=== PATIENT | female | born 1935 | race Caucasian/White ===

== ENCOUNTER 2017-09-06 11:56 | Inpatient (IN) | payer OTHER, MEDICARE ==
[~2017-09-06] VITALS: Ht 165.1 cm; Wt 65.6 kg
[~2017-09-06 11:56] MED LIST: ALTACE10 MG PO; ASCORBIC ACID100 MG PO; ASPIRIN E.C.81 M1 PO; Ascorbic Acid,Ester- PO; Aspirin E.C. PO; Ativan PO; CATAPRES0.2 MG PO; CENTRUM SILVER1 EAC3 PO; COLACE100 MG PO; COQ-10100 MG PO; Citracal W/Vitamin D PO; ELAVIL100 MG PO; FERGON324 MG PO; LIPITOR40 MG PO; Lopressor PO; NORVASC5 MG PO; TOPROL XL25 MG PO; TRAMADOL HCL50 MG PO; Tylenol Extra Streng PO; Vicodin,Norco 5/325 PO; ZYRTEC10 M3 PO; Zofran PO; ZyrTEC PO
[2017-09-06 12:55] LABS: BASOPHIL (%) 0.3 % (0-1); EOSINOPHIL (%) 0 % (0-5); HEMATOCRIT 35.2 % (36.0-46.0); HEMOGLOBIN 11.7 G/DL (11.9-15.5); IMMATURE GRANULOCYTE (%) 0.4 % (0.0-0.7); LYMPHOCYTE (%) 9.5 % (15-42); LYMPHOCYTE COUNT 1.1 K/uL (1.0-2.8); MCHC 33.2 G/DL (30.0-36.0); MCV 81.3 FL (83-99); MONOCYTE COUNT 0.8 K/uL (0-0.8); NEUTROPHIL (%) 82.8 % (45-76); NEUTROPHIL COUNT 9.5 K/uL (1.8-6.4); PLATELET COUNT 419 K/uL (156-360); RBC DIS.WIDTH-SD 44.2 % (39-53); RED BLOOD COUNT 4.33 M/uL (3.80-5.20); WHITE BLOOD COUNT 11.5 K/uL (4.1-10.2)
[2017-09-06 13:04] LABS: INTER. NORMALIZED RATIO 1.3
[2017-09-06 13:07] LABS: CHLORIDE 98 mEq/L (99-109); POTASSIUM 3.7 mEq/L (3.7-5.4); SODIUM 137 mEq/L (136-147)
[2017-09-06 13:09] LABS: GLUCOSE 140 mg/dL (70-99)
[2017-09-06 13:13] LABS: CREATININE 1.5 mg/dL (0.6-1.3); GFR ESTIMATE (CALCULATED) 35 mL/min/
[2017-09-06 13:14] LABS: UREA NITROGEN (BUN) 28 mg/dL (9-23)
[2017-09-06 13:15] LABS: TOTAL CK 2792 IU/L (1-294)
[2017-09-06 13:16] LABS: CREATINE KINASE 2792 IU/L (1-294)
[2017-09-06 13:17] LABS: PTT 26.5 SEC (25-37)
[2017-09-06 13:18] LABS: TROP-I INTERPRETATION NEGATIVE; TROPONIN-I 0.09 ng/mL (0.0-0.30)
[2017-09-06 13:38] LABS: CK-MB 11.5 ng/mL (0.0-4.9); CKMB RELATIVE INDEX 0.4 (0.0-3.9)
[2017-09-06] MEDS ORDERED: ATIVAN0.5 MG PO (15:18)
[2017-09-06] MEDS ORDERED: CITRACAL PLUS1 EAC1 PO (15:19)
[2017-09-06] MEDS ORDERED: IRON 100-VITAM1 EACH PO (15:24)
[2017-09-06] MEDS ORDERED: PRESERVISION T1 EACH PO (15:25)
[2017-09-06] MEDS ORDERED: HYDROCHLOROTHIA25 MG PO (15:25)
[2017-09-06] MEDS ORDERED: VITAMIN D31000 UNI2 PO (15:25)
[2017-09-06] MEDS ORDERED: ZANTAC150 MG PO (15:26)
[2017-09-06] MEDS ORDERED: LO-DOSE ASPIRIN81 M2 PO (15:26)
[2017-09-06] MEDS ORDERED: PERCOCET 2.51 TABLET PO (15:27)
[2017-09-06 19:27] LABS: TROP-I INTERPRETATION NEGATIVE; TROPONIN-I 0.11 ng/mL (0.0-0.30)
[2017-09-06 20:30] VITALS: BP 114/60
[2017-09-06 23:42] VITALS: BP 134/65
[2017-09-07 01:27] LABS: TROP-I INTERPRETATION NEGATIVE
[2017-09-07 04:05] VITALS: BP 119/67
[2017-09-07 06:43] LABS: ALBUMIN 2.4 G/DL (3.2-4.8); ALKALINE PHOSPHATASE 65 IU/L (3-129); ALT (GPT) 35 IU/L (3-49); AST (GOT) 48 IU/L (2-34); CHLORIDE 102 MEQ/L (99-109); CREATININE 1.2 MG/DL (0.6-1.3); GFR ESTIMATE (CALCULATED) 46 mL/min/; POTASSIUM 3.5 MEQ/L (3.7-5.4); SODIUM 137 MEQ/L (136-147); TOTAL BILIRUBIN 0.9 MG/DL (0.0-1.0); TOTAL CK 1124 IU/L (1-294); TOTAL PROTEIN 4.8 G/DL (6.4-8.3); UREA NITROGEN (BUN) 32 mg/dL (9-23)
[2017-09-07 06:54] LABS: CREATINE KINASE 1124 IU/L (1-294); GLUCOSE 97 mg/dL (70-99)
[2017-09-07 07:03] VITALS: BP 129/62
[2017-09-07 07:54] LABS: CKMB RELATIVE INDEX 0.6 (0.0-3.9)
[2017-09-07 07:59] LABS: CK-MB 7.2 ng/mL (0.0-4.9)
[2017-09-07 11:07] VITALS: BP 133/60
[2017-09-07 15:10] VITALS: BP 111/55
[2017-09-07 20:09] VITALS: BP 129/60
[2017-09-08 00:05] LABS: CK-MB 4.8 ng/mL (0.0-4.9)
[2017-09-08 00:07] VITALS: BP 130/62
[2017-09-08 01:02] LABS: CKMB RELATIVE INDEX 0.6 (0.0-3.9); CREATINE KINASE 741 IU/L (1-294); TOTAL CK 741 IU/L (1-294)
[2017-09-08 04:21] LABS: APPEARANCE CLEAR ((CLEAR)); BILIRUBIN NEGATIVE; BLOOD SMALL; COLOR YELLOW ((YELLOW)); GLUCOSE (STRIP) NEGATIVE; KETONES NEGATIVE; LEUKOCYTES NEGATIVE; NITRITE NEGATIVE; PROTEIN (STRIP) NEGATIVE; UROBILINOGEN 0.2 MG/DL (0.2-1.0)
[2017-09-08 04:23] LABS: BACTERIA RARE /HPF; EPITHELIAL CELLS RARE /HPF; MUCUS NONE SEEN /LPF; RED BLOOD CELLS 0-5 /HPF (0-5); UCUL ADDED? NO; WHITE BLOOD CELLS 0-5 /HPF (0-5)
[2017-09-08 05:31] VITALS: BP 138/65
[2017-09-08 06:52] LABS: CHLORIDE 105 MEQ/L (99-109); POTASSIUM 3.3 MEQ/L (3.7-5.4); SODIUM 136 MEQ/L (136-147)
[2017-09-08 06:57] LABS: CREATININE 0.8 MG/DL (0.6-1.3); GFR ESTIMATE (CALCULATED) > 59 mL/min/; GLUCOSE 105 mg/dL (70-99); UREA NITROGEN (BUN) 22 mg/dL (9-23)
[2017-09-08 07:22] LABS: BASOPHIL (%) 0.8 % (0-1); BASOPHIL COUNT 0.1 K/uL (0-0.1); EOSINOPHIL (%) 1.4 % (0-5); EOSINOPHIL COUNT 0.1 K/uL (0-0.3); HEMATOCRIT 25.6 % (36.0-46.0); IMMATURE GRANULOCYTE (%) 0.6 % (0.0-0.7); LYMPHOCYTE (%) 20.6 % (15-42); LYMPHOCYTE COUNT 1.6 K/uL (1.0-2.8); MCH 26.9 PG (29.0-34.0); MCHC 32.4 G/DL (30.0-36.0); MCV 83.1 FL (83-99); MONOCYTE (%) 9.4 % (3-12); MONOCYTE COUNT 0.7 K/uL (0-0.8); NEUTROPHIL (%) 67.2 % (45-76); NEUTROPHIL COUNT 5.2 K/uL (1.8-6.4); PLATELET COUNT 304 K/uL (156-360); RBC DIS.WIDTH-CV 15.5 % (11.8-14.6); RBC DIS.WIDTH-SD 46.5 % (39-53); WHITE BLOOD COUNT 7.8 K/uL (4.1-10.2)
[2017-09-08 07:24] LABS: RED BLOOD COUNT 3.08 M/uL (3.80-5.20)
[2017-09-08 07:25] LABS: HEMOGLOBIN 8.3 G/DL (11.9-15.5)
[2017-09-08 08:30] VITALS: BP 130/56
[2017-09-08 09:38] LABS: HEMOGLOBIN 8.6 G/DL (11.9-15.5); MCV 84.4 FL (83-99)
[2017-09-08 12:10] VITALS: BP 134/63
[2017-09-08 16:18] VITALS: BP 120/62
[2017-09-08 19:28] VITALS: BP 113/57
[2017-09-09 00:01] VITALS: BP 150/67
[2017-09-09 08:51] VITALS: BP 169/69
[2017-09-09 10:39] LABS: HEMATOCRIT 27.1 % (36.0-46.0); HEMOGLOBIN 8.5 G/DL (11.9-15.5); MCH 26.5 PG (29.0-34.0); MCHC 31.4 G/DL (30.0-36.0); MCV 84.4 FL (83-99); PLATELET COUNT 371 K/uL (156-360); RBC DIS.WIDTH-CV 15.9 % (11.8-14.6); RBC DIS.WIDTH-SD 48.2 % (39-53); RED BLOOD COUNT 3.21 M/uL (3.80-5.20); WHITE BLOOD COUNT 6.5 K/uL (4.1-10.2)
== END 2017-09-09 14:30 | DRG 558 ==
LOC: EME 11:56 → 4SOUTH 15:12 → EME 15:12 → 4SOUTH 15:12 → CANRESERV 15:55 → ENRESERV 15:55 → EDOF 16:44 → 2EAST 16:44 → ENRESERV 18:04 → 2EAST 19:14
PROVIDERS: Emergency Medicine; Hospitalist; Internal Medicine; Physician Assistant
DX: M62.82 Rhabdomyolysis (principal); N17.9 Acute kidney failure, unspecified; D62 Acute posthemorrhagic anemia; S50.00XA Contusion of unspecified elbow, initial encounter; S30.0XXA Contusion of lower back and pelvis, initial encounter; S40.012A Contusion of left shoulder, initial encounter; S40.011A Contusion of right shoulder, initial encounter; S70.02XA Contusion of left hip, initial encounter; S70.01XA Contusion of right hip, initial encounter; S80.02XA Contusion of left knee, initial encounter; S80.01XA Contusion of right knee, initial encounter; S40.022A Contusion of left upper arm, initial encounter; S40.021A Contusion of right upper arm, initial encounter; W01.0XXA Fall on same level from slipping, tripping and stumbling without subsequent striking against object, initial encounter; Y92.009 Unspecified place in unspecified non-institutional (private) residence as the place of occurrence of the external cause; R29.6 Repeated falls; Z66 Do not resuscitate; R91.1 Solitary pulmonary nodule; I10 Essential (primary) hypertension; F41.9 Anxiety disorder, unspecified; F32.9 Major depressive disorder, single episode, unspecified; G30.9 Alzheimer's disease, unspecified; F02.80 Dementia in other diseases classified elsewhere, unspecified severity, without behavioral disturbance, psychotic disturbance, mood disturbance, and anxiety; E78.00 Pure hypercholesterolemia, unspecified; I35.0 Nonrheumatic aortic (valve) stenosis; R00.0 Tachycardia, unspecified; E78.5 Hyperlipidemia, unspecified; Z88.5 Allergy status to narcotic agent; Z87.891 Personal history of nicotine dependence; Z79.82 Long term (current) use of aspirin; Z85.048 Personal history of other malignant neoplasm of rectum, rectosigmoid junction, and anus; Z90.49 Acquired absence of other specified parts of digestive tract
CPT/HCPCS: 70450; 71045; 72125; 72128; 72131; 73080; 73502; 74176; 80048; 80053; 81003; 82550; 82550 91; 82553; 82948; 83880; 84484; 85014; 85018; 85025; 85027; 85610; 85730; 93005; 93306; 94799; 97530 GP; 99281; 99284; J1644; J7030